=== PATIENT | female | born 1935 ===

== ENCOUNTER 2018-08-15 11:40 | Outpatient (CLI) | payer MEDICARE | END 2018-08-15 11:41 | disposition home or self-care (01) | LOC: C.PAT 11:40 | DX: K21.9 Gastro-esophageal reflux disease without esophagitis (principal) ==

== ENCOUNTER 2018-09-06 06:14 | Observation (INO) | payer MEDICARE ==
[2018-08-15 11:56] VITALS: BMI 22.1
[2018-09-06] MEDS ORDERED: Bupivacaine 0.25% 20 ML INJ IJ ONE (07:27)
[2018-09-06] MEDS ORDERED: Lidocaine/Epinephrine 1% 1:100000 10 ML IJ ONE (07:27)
[2018-09-06] MEDS ORDERED: metroNIDAZOLE IV 500 mg/100 ml 0 MG/0 ML BAG ONE (07:27)
[2018-09-06] MEDS ORDERED: ceFAZolin 1 gm in NS 0 GM/0 ML BAG IVPB ONE (07:27)
[2018-09-06] MEDS ORDERED: Vancomycin 1 gm/D5W 200 ml 1 GM/200 ML BAG IVPB ONE (07:49)
[2018-09-06] MEDS ORDERED: Propofol 10 mg/ml Inj (20 ML) ONE (07:53)
[2018-09-06] MEDS ORDERED: Midazolam 2 MG/2 ML VIAL ONE (07:54)
[2018-09-06] MEDS ORDERED: Neostigmine 1:1000 (1 mg/ml) Inj ONE (09:25)
[2018-09-06] MEDS ORDERED: Succinylcholine Chloride 20 mg/ml Syr (5 ml) IV ONE (09:25)
[2018-09-06] MEDS ORDERED: Rocuronium 10 mg/ml (5 ml) ONE (09:25)
[2018-09-06] MEDS ORDERED: Bupivacaine Liposomal Inj 20 ml INFIL ONE (09:31)
[2018-09-06] MEDS ORDERED: HYDROmorphone 0.5 mg/0.5 ml ISec IVP PRN (10:42)
--- NOTE | 2018-09-06 11:34 | PCM.SURG1 ---
Surgeon's Initial Post Op Note - Surgeon's Notes Surgeon: Dr. Juarez [employer] Segment Leader: Dr. Salcido Type of Anesthesia: General Endo, Local Pre-Operative Diagnosis: Hiatal hernia Operative Findings: see operative report Post-Operative Diagnosis: Hiatal hernia Operation Performed: Robotic hiatal hernia repair with Logan fundoplication Specimen/Specimens Removed: none Estimated Blood Loss: EBL {In ML}: 50 Blood Products Given: N/A Drains Used: No Drains Post-Op Condition: Good Date of Surgery/Procedure: 09/06/18 Time of Surgery/Procedure: 11:34
--- NOTE | 2018-09-06 12:40 | RAD ---
Date of service: 09/06/2018 HISTORY: s/p robotic hiatal hernia repair COMPARISON: Chest radiograph from 08/15/2018. FINDINGS: LUNGS: The lungs are well inflated. There is mild pulmonary venous congestion. There is airspace disease in the lower lobes. PLEURA: No pleural effusions or pneumothorax. CARDIOVASCULAR: Moderate cardiomegaly. There are aortic atherosclerotic calcifications present. OSSEOUS STRUCTURES: Within normal limits for the patient's age. VISUALIZED UPPER ABDOMEN: Normal. OTHER FINDINGS: There is free intraperitoneal air below the right hemidiaphragm, which may be postoperative in etiology. There is moderate subcutaneous tissue emphysema in the base of the neck and mild soft tissue emphysema along the right lower lateral chest wall. IMPRESSION: 1. Free intraperitoneal air below the right hemidiaphragm which may be postoperative in etiology. 2. Subcutaneous tissue emphysema in the base of the neck and along the right lower lateral chest wall. 3. This is airspace disease in the right lower lobe may represent subsegmental atelectasis however superimposed pneumonia cannot be excluded. Follow-up is advised.
[2018-09-06 17:11] VITALS: RESP 20
[2018-09-06] MEDS ORDERED: Morphine 4 MG/ML VIAL IVP PRN (22:30)
[2018-09-06] MEDS: Lactated Ringer's 1,000 ML IV SCH (22:36)
[2018-09-07] MEDS: Morphine 4 MG/ML VIAL IVP PRN ×2 (00:11→05:54)
[2018-09-07 01:22] VITALS: BP 179/71; PULSE 70; TEMP 97.8; O2SAT 97
[2018-09-07] MEDS: Lactated Ringer's 1,000 ML IV SCH (05:57)
[2018-09-07 08:45] LABS: BASO % 0.1 % (0.0-2.0); HEMOGLOBIN 9.4 g/dL (11.0-16.0); LYMPH # 0.8 K/uL (1.0-4.3); LYMPH % 7.5 % (20.0-40.0); MEAN CELL VOLUME 89.6 fL (81.0-99.0); MEAN CORPUSCULAR HEMOGLOBIN 29.4 pg (27.0-31.0); MEAN CORPUSCULAR HGB CONC 32.8 g/dL (33.0-37.0); MEAN PLATELET VOLUME 9.5 fL (7.2-11.7); MONO # 0.8 K/uL (0.0-0.8); MONO % 8.3 % (0.0-10.0); NEUT # 8.6 K/uL (1.8-7.0); NEUT % 84.1 % (50.0-75.0); PLATELET COUNT 202 K/uL (130-400); RED CELL DISTRIBUTION WIDTH 15.2 % (11.5-14.5)
[2018-09-07 08:47] LABS: BLOOD UREA NITROGEN 20 mg/dL (7-17); CALCIUM 8.7 mg/dl (8.6-10.4); GFR NON-AFRICAN AMERICAN > 60
[2018-09-07 08:49] LABS: WHITE BLOOD COUNT 10.2 K/uL (4.8-10.8)
[2018-09-07 09:30] LABS: BANDS 1 % (0-2); LYMPHOCYTE 5 % (20-40); MONOCYTE 8 % (0-10); NEUTROPHIL 86 % (50-75); TOTAL CELLS COUNTED 100
[2018-09-07 09:31] LABS: PLATELET ESTIMATE NORMAL (NORMAL)
[2018-09-07 09:32] LABS: ANISOCYTOSIS SLIGHT; HYPOCHROMIC SLIGHT; POIKILOCYTOSIS SLIGHT
--- NOTE | 2018-09-07 10:09 | CP.PCM.DIS ---
Provider - Provider Date of Admission: 09/06/18 11:38 Attending physician: Abilio Salcido MD Time Spent in preparation of Discharge (in minutes): 30 Diagnosis - Discharge Diagnosis (1) Hiatal hernia with GERD Status: Chronic Priority: High Hospital Course - Lab Results Lab Results: Most Recent Lab Values WBC 10.2 K/uL (4.8-10.8) D 09/07/18 08:29 RBC 3.20 Mil/uL (3.80-5.20) L 09/07/18 08:29 Hgb 9.4 g/dL (11.0-16.0) L 09/07/18 08: Hct 28.6 % (34.0-47.0) L 09/07/18 08: MCV 89.6 fL (81.0-99.0) 09/07/18 08:29 MCH 29.4 pg (27.0-31.0) 09/07/18 08: MCHC 32.8 g/dL (33.0-37.0) L 09/07/18 08:29 RDW 15.2 % (11.5-14.5) H 09/07/18 08:29 Plt Count 202 K/uL (130-400) 09/07/18 08: MPV 9.5 fL (7.2-11.7) 09/07/18 08:29 Neut % (Auto) 84.1 % (50.0-75.0) H 09/07/18 08: Lymph % (Auto) 7.5 % (20.0-40.0) L 09/07/18 08:29 Harper % (Auto) 8.3 % (0.0-10.0) 09/07/18 08: Eos % (Auto) 0.0 % (0.0-4.0) 09/07/18 08: Baso % (Auto) 0.1 % (0.0-2.0) 09/07/18 08: Neut # (Auto) 8.6 K/uL (1.8-7.0) H 09/07/18 08:29 Lymph # (Auto) 0.8 K/uL (1.0-4.3) L 09/07/18 08:29 Harper # (Auto) 0.8 K/uL (0.0-0.8) 09/07/18 08:29 Eos # (Auto) 0.0 K/uL (0.0-0.7) 09/07/18 08:29 Baso # (Auto) 0.0 K/uL (0.0-0.2) 09/07/18 08:29 Neutrophils % (Manual) 86 % (50-75) H 09/07/18 08:29 Band Neutrophils % 1 % (0-2) 09/07/18 08:29 Lymphocytes % (Manual) 5 % (20-40) L 09/07/18 08:29 Monocytes % (Manual) 8 % (0-10) 09/07/18 08:29 Platelet Estimate Normal (NORMAL) 09/07/18 08:29 Hypochromasia (manual) Slight 09/07/18 08:29 Poikilocytosis (manual Slight 09/07/18 08:29 Anisocytosis (manual) Slight 09/07/18 08:29 Sodium 134 mmol/L (132-148) 09/07/18 08:29 Potassium 4.1 mmol/L (3.6-5.2) 09/07/18 08:29 Chloride 100 mmol/L (98-107) 09/07/18 08:29 Carbon Dioxide 29 mmol/L (22-30) 09/07/18 08:29 Anion Gap 10 (10-20) 09/07/18 08:29 BUN 20 mg/dL (7-17) H 09/07/18 08:29 Creatinine 0.9 mg/dL (0.7-1.2) 09/07/18 08:29 Est GFR ( Amer) > 60 09/07/18 08:29 Est GFR (Non-Af Amer) > 60 09/07/18 08:29 Random Glucose 105 mg/dL (65-105) 09/07/18 08:29 Calcium 8.7 mg/dl (8.6-10.4) 09/07/18 08:29 - Hospital Course Hospital Course: 82F wit PMHx significant for GERD & hiatal hernia who presented to for elective hiatal hernia repair. Pt underwent robotic hiatal hernia repair with Logan fundoplication on 09/06/18. She's POD#1 today and tolerating CLD without difficulty. Pt is voiding, ambulating and denies fevers/chills. Discharge home with continuation of full liquid diet for 2 weeks. will f/u as outpt with Dr. Salcido & Melvin in 2 weeks. Discharge Exam - Head Exam Head Exam: ATRAUMATIC, NORMOCEPHALIC - Eye Exam Eye Exam: Normal appearance - ENT Exam ENT Exam: Mucous Membranes Moist - Respiratory Exam Respiratory Exam: NORMAL BREATHING PATTERN - Cardiovascular Exam Cardiovascular Exam: RRR - GI/Abdominal Exam GI & Abdominal Exam: Soft, Tenderness (around incision sites, C/D/I). absent: Distended, Guarding - Neurological Exam Neurological exam: Alert, Oriented x3 - Skin Skin Exam: Dry, Warm Discharge Plan - Follow Up Plan Condition: GOOD Disposition: HOME/ ROUTINE Patient education suggested?: Yes Instructions: Hiatal Hernia (DC), Fundoplication, Laparoscopic Surgery (DC), Full Liquid Diet Additional Instructions: continue full liquids for 2 weeks at home. No solid food. f/u with Dr. Salcido in 2 weeks, f/u with Dr. Charles in 2 weeks. Ok to remove dressings and shower on tuesday. No heavy lifting > 15lbs for 4-6 weeks. Referrals: Damaso Juarez [Staff Provider] -
--- NOTE | 2018-09-07 10:18 | RAD ---
Date of service: 09/07/2018 HISTORY: subQ emphysema COMPARISON: 09/06/2018 FINDINGS: LUNGS: Interval increased opacity medial right lung base along with likely associated discoid atelectasis here. Findings all may be related to atelectasis. However given the nodular component-an interval concomitant rounded infiltrate here medial right lung base is possible. No change at left lung base noted. PLEURA: Small left pleural effusion suggested. No interval right pleural effusion. No pneumothorax seen. CARDIOVASCULAR: There is presence of aortic atherosclerotic calcification on x-ray. Mild cardiomegaly No significant appearing pulmonary venous congestion. OSSEOUS STRUCTURES: No significant abnormalities. VISUALIZED UPPER ABDOMEN: Interval left subdiaphragmatic gas noted. The prior right subdiaphragmatic air appears less than before. As noted previously this may be postoperative in this patient with a history of recent robotic hiatal hernia surgery OTHER FINDINGS: The prior extensive subcutaneous emphysema in each supraclavicular region along each inferior thoraco abdominal lateral aspects appears less now than before. IMPRESSION: Free subdiaphragmatic intraperitoneal air noted and reported on prior study as well This may be postoperative given the recent robotic hiatal hernia surgery history referenced. Interval discoid atelectasis right lung base. Additional small concomitant patchy infiltrate medial right lung base possible. Clinical correlation and follow-up recommended. Interval improved/decreased degree of subcutaneous emphysema
[2018-09-07] MEDS ORDERED: Oxycodone/Acetaminophen 5/325 mg Tab PO PRN (10:39)
--- NOTE | 2018-09-07 21:05 | OP ---
PROCEDURE DATE: 09/06/2018 PREOPERATIVE DIAGNOSIS: Progressively symptomatic chronic paraesophageal hernia. POSTOPERATIVE DIAGNOSIS: Progressively symptomatic chronic paraesophageal hernia. PROCEDURE: Robotic assisted laparoscopic hiatal hernia repair with a Logan fundoplication. SURGEON: Damaso Juarez MD CO-SURGEON: Abilio Salcido MD ENTERPRISE SYSTEMS ENGINEER: SABINO Lund TYPE OF ANESTHESIA: General. ANESTHESIOLOGIST: As per record. INDICATIONS: As above. SPECIMENS: None. COMPLICATIONS: None. ESTIMATED BLOOD LOSS: Less than 25 mL. PROCEDURE IN DETAIL: The patient was identified by the operating room staff and placed supine on to the operating room table. Bilateral Venodynes were placed. Adequate IV access was assured by the anesthesiologist. Prophylactic IV antibiotics were administered. General endotracheal anesthesia was induced uneventfully. Corona catheter was inserted. The patient was laid supine with arms tucked and all pressure points were appropriately padded. Sterile prep was performed from the level of the pubis up to the mid chest. A pneumoperitoneum was induced via a left upper quadrant Visiport insertion. Pressure did not exceed 15 mmHg. Total of 5 port sites were introduced into the belly under direct visualization without incident. Four were robotic arms and one was the kindergarten assistant port. Robotic arms were docked successfully. Attention turned to the hiatus and dissection began at the hepatogastric ligament. It was taken down sharply and the right hilario identified. A circumferential dissection then began with the primarily use of gentle blunt dissection and the bipolar energy device so as to reduce the hernial sac. The gastroesophageal junction was indeed above the level of diaphragm. When that dissection was complete, there was adequate intraabdominal esophageal length and the gastroesophageal junction was clearly greater than 5 cm below the level of the diaphragm. The left hilario and the right hilario were delineated. Both vagus nerves were preserved. A primary hiatal repair was next performed with a running nonabsorbable V-Loc suture followed by interrupted [id number] large bore Ethibond sutures. Care was taken so as to not impinge upon the esophagus. There was no need for any anterior suturing. Next, a Logan fundoplication was performed by wrapping the fundus over the GE junction and anchoring it at three points along the phrenoesophageal ligament and the right hilario. This again was done with interrupted large bore Ethibond sutures. The stomach was completely viable. There was no evidence of any volvulus or torsion. At this point, a bilateral rectus nerve block was performed and all port sites were removed uneventfully. The robotic arms were undocked successfully. Pneumoperitoneum was released. The port sites were repaired with layers of absorbable suture. Prophylactic local anesthetics were also given at all port sites. Sterile dressings were applied. The patient was then allowed to awaken and was extubated uneventfully. She was sent back to the postanesthesia care unit with stable hemodynamics and stable respiratory status. All counts were correct x2. Damaso Juarez MD
== END 2018-09-07 11:46 | disposition home or self-care (01) ==
LOC: C.SDS 06:14 → C.9S 11:38 → C.3T 16:45
PROVIDERS: ADMIT Surgery Surgical Critical Care; ATTEND Surgery Surgical Critical Care
DX: K44.9 Diaphragmatic hernia without obstruction or gangrene (principal); K21.9 Gastro-esophageal reflux disease without esophagitis
CPT/HCPCS: 36415; 43281; 71045; 80048; 85025; 96375; 96376; G0378; J0131; J1100; J1170; J2001; J2250; J2270; J2405; J2704; J2710; J3010; J3370; J7120

== ENCOUNTER 2018-11-09 07:42 | Outpatient (CLI) | payer MEDICARE | END 2018-11-09 07:43 | disposition home or self-care (01) | LOC: C.RADH 07:42 ==